=== PATIENT | male | born 1980 | race Caucasian/White ===

== ENCOUNTER 2022-04-25 11:20 | Emergency (ER) | payer OTHER | END 2022-04-25 11:41 | disposition home or self-care (01) | LOC: BURERS 11:20 | DX: J06.9 Acute upper respiratory infection, unspecified (principal); I10 Essential (primary) hypertension ==

== ENCOUNTER 2022-09-04 08:08 | Emergency (ER) | payer OTHER, MEDICAID ==
[2022-09-04] MEDS ORDERED: Doxycycline 100 MG CAP ONE (08:48)
[2022-09-04] MEDS ORDERED: Dexamethasone 10 MG/ML VIAL ONE (08:48)
== END 2022-09-04 08:56 | disposition home or self-care (01) ==
LOC: BURERS 08:08
DX: J06.9 Acute upper respiratory infection, unspecified (principal); L30.9 Dermatitis, unspecified; I10 Essential (primary) hypertension
CPT/HCPCS: 96372; 99284; J1100

== ENCOUNTER 2022-09-13 03:49 | Emergency (ER) | payer OTHER, MEDICAID | END 2022-09-13 04:24 | disposition home or self-care (01) | LOC: BURERS 03:49 | DX: R09.81 Nasal congestion (principal); I10 Essential (primary) hypertension | CPT/HCPCS: 99283 ==

== ENCOUNTER 2024-01-21 19:19 | Emergency (ER) | payer OTHER, MEDICAID ==
[2024-01-21 19:54] LABS: Bilirubin Negative (Negative); Blood, Urine Large (Negative); Clarity Cloudy (Clear); Glucose, Urine (Dipstick) Negative (Negative); Ketone, Urine Negative (Negative); Leukocyte Negative (Negative); Nitrite Negative (Negative); Protein, Urine (Dipstick) 30 mg/dL (Neg-Trace); Urobilinogen 0.2 mg/dL (Less than 2); pH, Urine 5.5 (5.0-9.0)
[2024-01-21 20:20] LABS: Bacteria/HPF 2+ HPF (None Seen); CAUTI Indications for Culture Dysuria,urgency,freq; RBC/HPF Greater than 50 HPF (0-3); Squamous Epithelial None Seen HPF (0-3); WBC/HPF 0-3 HPF (0-3)
[2024-01-21 20:21] LABS: Urine Culture Reflex No No
[2024-01-21 20:41] LABS: #Basophils 0.1 thou/uL (0.0-0.2); #Eosinophils 0.2 thou/uL (0.0-0.7); #Lymphocytes 2.5 thou/uL (1.20-3.40); #Monocytes 0.7 thou/uL (0.11-0.59); %Basophils 1.1 % (0.0-1.0); %Eosinophils 2.1 % (0.0-10.0); %Lymphocytes 23.7 % (21.0-51.0); %Neutrophils 66.1 % (42.0-75.0); Hematocrit 45.4 % (42.0-52.0); Hemoglobin 15.1 g/dL (14.0-18.0); Mean Corpuscular HGB CONC 33.2 g/dL (32.0-36.0); Mean Corpuscular Hemoglobin 27.4 pg (27.0-31.0); Mean Corpuscular Volume 82.5 fl (78.0-98.0); Mean Platelet Volume 7.2 fL (7.4-10.4); Platelet Count 299 10x3/uL (130-400); RBC Distribution Width 11.3 % (11.5-14.5); White Blood Cell (WBC) Count 10.5 10x3/uL (4.8-10.8)
[2024-01-21 20:58] LABS: ALT (SGPT) 33 U/L (8-55); AST (SGOT) 23 U/L (5-34); Albumin 4.1 g/dL (3.5-5.0); Alkaline Phosphatase 76 U/L (40-110); Anion Gap 14 mmol/L (10-20); BUN (Urea Nitrogen) 15 mg/dL (8.9-20.6); Bilirubin, Total 0.7 mg/dL (0.2-1.2); Calc. Creatinine Clearance 0 mL/min (70-130); Calcium 9.7 mg/dL (7.8-10.44); Carbon Dioxide 25 mmol/L (22-29); Chloride 106 mmol/L (98-107); Estimated GFR 55; Globulin 3.3 g/dL (2.4-3.5); Glucose 107 mg/dL (70-105); Lipase 17 U/L (8-78); Protein, Total 7.4 g/dL (6.0-8.3); Sodium 141 mmol/L (136-145)
[2024-01-21] MEDS ORDERED: Morphine 4 MG/ML VIAL ONE (21:51)
[2024-01-21] MEDS ORDERED: Ketorolac Tromethamine 30 MG (1 mL) VIAL ONE (23:01)
== END 2024-01-21 23:28 | disposition home or self-care (01) ==
LOC: BURERS 19:19
DX: N13.2 Hydronephrosis with renal and ureteral calculous obstruction (principal); I10 Essential (primary) hypertension
CPT/HCPCS: 74176; 80053; 81001; 83605; 83690; 85025; 96372; 99284; J1885; J2272; 36415